=== PATIENT | male | born 1970 | race Two or more races ===

== ENCOUNTER 2024-09-21 20:39 | Emergency (ER) | payer OTHER ==
[~2024-09-21] VITALS: Ht 182.9 cm; Wt 99.8 kg
[2024-09-21] MEDS ORDERED: KETOROLAC TROMETHAMINE 60 MG VIAL IM ONE ×2 (21:30→21:35)
[2024-09-21] MEDS ORDERED: DICLOFENAC SODI50 MG PO (21:57)
[2024-09-21 22:14] VITALS: BP 134/88; O2SAT 99
== END 2024-09-21 22:15 | disposition home or self-care (01) ==
LOC: ER 21:06
DX: S43.402A Unspecified sprain of left shoulder joint, initial encounter (principal); X58.XXXA Exposure to other specified factors, initial encounter; Y93.89 Activity, other specified; Y92.89 Other specified places as the place of occurrence of the external cause; Y99.9 Unspecified external cause status; M19.012 Primary osteoarthritis, left shoulder